=== PATIENT | male | born 1990 | race Caucasian/White ===

== ENCOUNTER 2019-01-24 02:18 | Emergency (ER) | payer BC, OTHER ==
--- NOTE | 2019-01-24 02:59 | ED Physician Documentation ---
Upper Respiratory Symptoms - HISTORIAN Historian: patient - HPI Stated Complaint: Rt ear pressure, sore throat/cough Chief Complaint: Cough/ Upper Respiratory Additional Information: Patient is a 28-year-old male that presents to the ER with c/o non-productive cough x 4 days, right sided ear pressure, and sore throat. He states that he has been taking Mucinex with no relief. He denies f/c/n/v/d. Onset: days ago Duration: intermittent episodes Context: denies: recent foreign travel, multiple patients Severity: moderate Associated Symptoms: earache, sinus pain, sinus drainage, sore throat. denies: fever, chills - ROS CONST/EYES: denies: weakness CVS/RESP: none LYMPH: denies: rash GI/: none NEURO/PSYCH: denies: dizziness MS/SKIN: denies: muscle aches - PAST HX Lung Disease: none PE Risk Factors: none Surgeries/Procedures: other (T&A) Immunizations: UTD Allergies/Adverse Reactions: Allergies Allergy/AdvReac Type Severity Reaction Status Date / Time No Known Allergies Allergy Verified 01/24/19 02:49 Home Medications: Ambulatory Orders Medication Instructions Recorded NK 01/24/19 - SOCIAL HX Smoking History: non-smoker Alcohol Use: none Drug Use: none - FAMILY HX Family History: none - VITAL SIGNS Vital Signs: Vital Signs Temp Pulse Resp BP Pulse Ox 98.3 F 75 14 120/75 98 01/24/19 02:19 01/24/19 02:19 01/24/19 02:19 01/24/19 02:19 01/24/19 02:19 - REVIEWED ASSESSMENTS Nursing Assessment Reviewed: Yes Vitals Reviewed: Yes ED Results Lab/Radiology - Orders Orders: ED Orders Category Date Time Status Amoxicillin/Potassium Clav [AUGMENTIN 875MG/125 mg Med 01/24/19 02:54 Once Tablet] 1 each PO NOW ONE Ibuprofen [Advil Soln] Med 01/24/19 02:54 Once 800 mg PO NOW ONE Upper Respiratory Symptoms - EXAM General Appearance: alert, mild distress EENT: eyes nml inspection, lids & conjunct. nml, PERRL, pain over sinuses, maxillary, TM erythema, TM dullness (R), TM dullness (L), nose nml, pharynx nml Neck: normal inspection, supple Respiratory: breath sounds nml, speaks full sentences Abdomen: non-tender CVS: heart sounds normal, equal pulses Skin: color nml, no rash, warm,dry Extremities: non-tender, normal range of motion Neuro/Psych: oriented x3, neuro intact, mood/affect nml Discharge Clincal Impression: Acute sinus infection Referrals: Primary Doctor,No [Primary Care Provider] - 2 Days Additional Instructions: Take Augmentin 875 mg by mouth twice a day for 10 days Mucinex by mouth twice a day Alternate Ibuprofen and Tylenol as needed for fever/discomfort Increase fluid intake Hot tea with tsp of honey will help thin secretions Follow up with PCP next week if no improvement Condition: Good Disposition: 01 HOME, SELF-CARE Decision to Admit: NO Decision Time: 03:05
[2019-01-24] MEDS: IBUPROFEN 200MG/10ML ORAL SUSPENSION CUP PO ONE (03:23)
[2019-01-24] MEDS: AMOXICILLIN/POT 875/125 1 EACH PO ONE (03:23)
[2019-01-24 03:40] VITALS: BP 122/72
== END 2019-01-24 03:33 | disposition home or self-care (01) ==
LOC: ED 02:18
DX: J01.90 Acute sinusitis, unspecified (principal)
CPT/HCPCS: 87070; 87880; 99283